=== PATIENT | female | born 1995 | race Caucasian/White ===

== ENCOUNTER 2019-01-20 14:00 | Emergency (ER) | payer OTHER ==
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
[2019-01-20 15:08] VITALS: BP 147/82
== END 2019-01-20 15:08 | disposition home or self-care (01) ==
DX: S06.0X0A Concussion without loss of consciousness, initial encounter (principal); W21.9XXA Striking against or struck by unspecified sports equipment, initial encounter